=== PATIENT | male | born 1960 | race African-American/Black ===

== ENCOUNTER 2022-05-09 23:08 | Emergency (ER) | payer MEDICARE, OTHER ==
[~2022-05-09] VITALS: Ht 162.6 cm; Wt 78.0 kg
[~2022-05-09 23:08] MED LIST: DULO30CA2 PO; GABA600T PO; QUET200T; TOPI50TA
[2022-05-09 23:24] VITALS: BP 137/68
== END 2022-05-10 01:30 | disposition left against medical advice (07) ==
LOC: ER 23:08
DX: Z53.21 Procedure and treatment not carried out due to patient leaving prior to being seen by health care provider (principal)

== ENCOUNTER 2022-08-01 00:14 | Emergency (ER) | payer MEDICARE, OTHER ==
[~2022-08-01] VITALS: Ht 154.9 cm; Wt 85.0 kg
[2022-08-01 00:18] VITALS: BP 146/78
== END 2022-08-01 05:38 | disposition left against medical advice (07) ==
LOC: ER 00:14
DX: Z53.21 Procedure and treatment not carried out due to patient leaving prior to being seen by health care provider (principal)
CPT/HCPCS: 99281